=== PATIENT | female | born 2005 | race Caucasian/White ===

== ENCOUNTER 2024-02-07 18:33 | Emergency (ER) | payer BC ==
[~2024-02-07] VITALS: Ht 152.4 cm; Wt 55.5 kg
[2024-02-07 18:47] VITALS: TEMP 98.3
[2024-02-07 21:22] LABS: COLLECTION METHOD CLEAN CATCH
[2024-02-07 21:28] LABS: URINE APPEARANCE CLOUDY (CLEAR/HAZY); URINE BLOOD NEGATIVE (NEGATIVE); URINE COLOR YELLOW (YELLOW); URINE GLUCOSE NEGATIVE (NEGATIVE); URINE KETONE 1+ (NEGATIVE); URINE NITRATE NEGATIVE (NEGATIVE); URINE PROTEIN(semi-quant) TRACE (NEGATIVE); URINE UROBILINOGEN 0.2 E.U/dL (0.2-1.0)
[2024-02-07] MEDS ORDERED: CEPHALEXIN500 M1 PO (22:44)
[2024-02-07] MEDS ORDERED: Ibuprofen 600 MG TAB PO ONE (22:45)
[2024-02-07] MEDS ORDERED: cefTRIAXone 1 G,Lidocaine PF 1% 2.1 ML IM ONE (22:45)
[2024-02-07 23:09] VITALS: BP 109/57; PULSE 72
== END 2024-02-07 23:09 | disposition home or self-care (01) ==
LOC: COL.ER 18:33
PROVIDERS: Emergency Medicine
DX: N39.0 Urinary tract infection, site not specified (principal)
CPT/HCPCS: J0696